=== PATIENT | female | born 1965 | race Caucasian/White ===

== ENCOUNTER 2016-08-20 08:30 | Emergency (ER) | payer OTHER ==
--- NOTE | 2016-08-20 09:33 | DIAGNOSTIC IMAGING REPORT ---
PROCEDURE: XR FOREARM - RIGHT INDICATION: TRAUMA/INJURY TECHNIQUE: Two views of the right forearm. COMPARISON: None. FINDINGS: Mild soft tissue swelling distal aspect of the forearm but no radiopaque foreign bodies. No fracture or dislocation. Normal joint spaces. IMPRESSION: 1. Soft tissue swelling neela
--- NOTE | 2016-08-20 09:35 | ED ORDER SUMMARY ---
..... Patient: GUANAKITO MARTINEZ OrderSheet [facility] VisitID: [id number] [address] [place] [address] 50y, F Registration Date/Time: 08/20/2016 ORDER SHEET Weight: 89.8 kg (stated) Allergies: Penicillins, Flonase GENERAL ORDERS: Forearm Right (dog bite to forearm (prox to mid)) Urgent (09:08/20/2016 [facility]) (Ack 9:13 LTapper) (9:33 Margaret R.N.) Dress Wounds (clean and dress with antibiotic oint after x-ray) (:08/20/2016 [facility]) (9:33 Margaret R.N.) MEDICATION ORDERS: Doxycycline Hyclate PO 200 mg (NOW) (09:08/20/2016 [facility]) (Ack 9:32 Vinh R.N.) (9:38 Margaret R.N.) Ibuprofen PO 400 mg (NOW) (09:08/20/2016 [facility]) (Ack 9:32 Vinh R.N.) (9:38 Margaret R.N.) IV FLUIDS: ORDER SHEET NOTES: [Electronically signed by Raf Rivers R.N. (10:08/20/2016)] [Electronically signed by Chung Dewitt DO (11:47 08/20/2016)] [Electronically locked/signed by Raf Rivers R.N. (10:08/20/2016)]
--- NOTE | 2016-08-20 09:35 | ED CLINICAL REPORT ---
Clinical Report - Physicians/Mid Levels [facility] [address] [place] [address] 08/20/2016 8:35 Patient: GUANAKITO MARTINEZ Time Seen: 09:01. Arrived- By private vehicle. Historian- patient. HISTORY OF PRESENT ILLNESS Location of injuries- right forearm. Chief Complaint: DOG BITE. The injury occurred just prior to arrival. The animal reportedly appeared well, is up to date on immunizations and can be observed for ten days. Occurred at home. This was a "provoked" attack. Animals were fighting. No itching, fainting episodes or difficulty breathing. She has not had swelling, drainage or trouble swallowing. REVIEW OF SYSTEMS No numbness, headache, difficulty breathing, weakness or tingling. No chest pain, nausea, fever, joint pain or abdominal pain. No vomiting or chills. PAST HISTORY See nurses notes. PROBLEMS: Anxiety Reaction. SURGERIES: Cyst from spine. Nasal surgery. Shoulder Surgery. Tetanus immunization status is up-to-date. SOCIAL HISTORY Smoker- current status unknown. No alcohol use or drug use. ADDITIONAL NOTES The nursing notes have been reviewed. PHYSICAL EXAM Vital Signs: 08/20/2016 08:44 BP: 137/70. HR: 64. RR: 18. O2 saturation: 95%. Temp: 98.1 F. Pain level now: 5/10. Appearance: Alert. Oriented X3. No acute distress. Head: Head normal on inspection and non-tender. Eyes: Eyes normal inspection. Neck: Normal inspection. Neck non-tender. CVS: Heart sounds normal. Pulses normal. Respiratory: Chest normal on inspection. Breath sounds normal. Chest nontender. Abdomen: Normal inspection. Skin: Skin warm and dry. (multiple abrasions and superficial punctures with one approx 0.5 cm laceration into the dermis on the dorsal aspect of the right forearm). Extremities: Right forearm: moderate tenderness, mild swelling, superficial 0.5 cm laceration and multiple puncture wounds located in the proximal and mid dorsal and volar aspect of forearm (multiple abrasions and superficial punctures with one approx 0.5 cm laceration into the dermis on the dorsal aspect of the right forearm). No deformity. Pelvis stable. Neuro: Waldorf Coma Scale: 15- eyes open spontaneously (4); best verbal response- oriented x 3 (5); best motor response- obeys commands (6). Oriented X 3. No motor deficit. LABS, X-RAYS, AND EKG Rt Forearm X-ray: No fracture. Normal alignment. No bony lesion or foreign body. Soft tissue swelling. Views: AP and lateral. Technique: good. The X-rays were interpreted contemporaneously by me. The X-rays were discussed with the radiologist (via PACS note). PROGRESS AND PROCEDURES PROCEDURES (Right forearm wounds cleaned and dressed with antibiotic ointment). Course of Care: Ibuprofen 400 mg PO given. Doxycycline 200 mg PO given. No primary closure of the one superficial right forearm laceration due to risk of infection. Patient/family counseled. Old ED records reviewed. Disposition: Discharged. Condition: stable and improved. CLINICAL IMPRESSION Superficial dog bite to the right forearm. INSTRUCTIONS Elevate affected areas above chest level. (You may consider closure of the small right forearm laceration per your primary care provider in 3 - 5 days if no signs of infection or other problems.). Warnings: INFECTION: Watch for signs of infection (increasing heat and redness, pus-like drainage, swelling, or increased pain). Return or see your doctor if these signs occur. GENERAL WARNINGS: Return or contact your physician immediately if your condition worsens or changes unexpectedly, if not improving as expected, or if other problems arise. Your Current Medications: CONTINUE TAKING THE FOLLOWING MEDICATIONS: Allergy Oral. DULoxetine HCl Oral. Prescription Medications: Doxycycline 100 mg: Take 1 capsule orally every 12 hours for 3 days. No refill. OTC Medications: Acetaminophen (available over the counter): take according to label instructions. Motrin (available over the counter): take according to label instructions. Follow-up: Follow up with your doctor in three days for wound check. (Electronically signed by Chung Dewitt DO 08/20/2016 11:47)
--- NOTE | 2016-08-20 09:35 | ED NURSING NOTES ---
Clinical Report - Nurses [facility] [address] [place] [address] 08/20/2016 8:35 Patient: GUANAKITO MARTINEZ TRIAGE Triage time 08:44. Acuity: LEVEL 4. Chief Complaint: DOG BITE. Alert. No acute distress. DAVID COMA SCORE: David Coma Scale: 15- eyes open spontaneously (4); best verbal response- oriented x 4 (5); best motor response- obeys commands (6). --08:51 Maria Isabel Antonio R.N. 08:44 08/20/16. BP: 137/70. HR: 64. RR: 18. O2 saturation: 95% on room air. Temp: 98.1 F (oral). Pain level now: 5/10. --08:51 Maria Isabel Antonio R.N. Weight: 89.8 kg stated. Height/Length: 63 inches Per Patient. BMI: 35.1. --08:48 Maria Isabel Antonio R.N. Medications DULoxetine HCl Oral. --08:45 Maria Isabel Antonio R.N. Allergy Oral. --08:46 Maria Isabel Antonio R.N. Medication/allergy information source: the patient. --08:51 Maria Isabel Antonio R.N. Allergies Penicillins. --08:46 Maria Isabel Antonio R.N. Flonase. --08:46 Maria Isabel Antonio R.N. History Arrived by private vehicle. Historian: patient. Unaccompanied. Primary physician (Emily). Location of injuries: right forearm and right wrist. This occurred just prior to arrival. Circumstances: This was an "unprovoked" attack. (her dogs were fighting over a treat). The animal reportedly appeared well and is up to date on immunizations. PAST MEDICAL HX: Last tetanus: (about 4 years ago). The patient is post-menopausal. SOCIAL HX: Smoker- current status unknown (no). No alcohol use or drug use. FALL RISK ASSESSMENT: Fall risk assessment completed. No fall risk identified. FUNCTIONAL ASSESSMENT: Functional assessment: no impairments noted. LEARNING NEEDS ASSESSMENT: The learning needs assessment revealed no barriers. --08:51 Maria Isabel Antonio R.N. PROBLEMS: Anxiety Reaction. --08:47 Maria Isabel Antonio R.N. ADDITIONAL SURGERIES: Cyst from spine. Nasal surgery. Shoulder Surgery. --08:47 Maria Isabel Antonio R.N. Assessment GENERAL / NEURO / PSYCH: Alert. Oriented X 4. Appears in no acute distress. Patient appears calm and cooperative. RESPIRATORY: Respirations not labored. SKIN: Skin is warm and dry. --08:51 Maria Isabel Antonio R.N. Interventions ID and allergy band on patient. To treatment room. --08:51 Maria Isabel Antonio R.N. PHYSICAL ASSESSMENT 08:57 08/20/16. Ambulatory to room. GENERAL / NEURO / PSYCH: Alert. Oriented X 4. Appears in no acute distress. RESPIRATORY: Respirations not labored. EXTREMITIES: ( multiple punctures on right forearm/wrist). SKIN: Skin is warm and dry. --08:57 Maria Isabel Antonio R.N. NURSING PROGRESS NOTES 08:57 08/20/16. Call light placed in reach. Side rails up x 1. Bed placed in lowest position. Brakes of bed on. --08:57 Maria Isabel Antonio R.N. <<STRICKEN ENTRY-- 09:25 08/20/16. ( Pt given a Chlorhexadine sponge an a basin of warm water to gently cleanse her puncture wounds on her (R) Forearm.). --09:39 Raf Rivers R.N. --END STRIKE>> Correction --10:18 Raf Rivers R.N. 09:33 08/20/2016 DOXYCYCLINE HYCLATE PO Tablets 200 mg given. Allergies verified and confirmed 5 rights. --09:38 Raf Rivers R.N. 09:38 08/20/2016 Ibuprofen PO Tablets 400 mg given. Allergies verified and confirmed 5 rights. --09:38 Raf Rivers R.N. <<STRICKEN ENTRY-- 09:10 late entry -. Patient transported to MD by stretcher with tech. --10:19 Raf Rivers R.N. --END STRIKE>> Correction --10:21 Raf Rivers R.N. 0910 late entry -. Patient transported to radiology by stretcher with tech. --10:22 Raf Rivers R.N. 09:30. Patient returned from CT by stretcher with tech. --10:19 Raf Rivers R.N. 09:30 late entry -. Patient returned from radiology by stretcher with tech. --10:24 Raf Rivers R.N. 09:30. ( Pt given a Chlorhexadine sponge and a basin of warm water to gently cleanse her puncture wounds on the (R) Forearm.). --10:26 Raf Rivers R.N. 09:35. ( Her puncture wounds were covered with Bacitracin ointment and vaseline impregnated gauze, and sterile 4 x [address] by a Kerlix wrap.). --09:51 Raf Rivers R.N. DISPOSITION / DISCHARGE 09:35 08/20/16. BP: 124/64. HR: 60. RR: 16. O2 saturation: 99% on room air. Temp: 98.2 F (oral). Pain level now: 08/28. --09:55 Raf Rivers R.N. Departure time: 939. --09:56 Raf Rivers R.N. 09:40. Condition at departure: improved. No learning barriers present. Discharge instructions provided and reviewed with the patient. Reviewed medication(s) (prescription given to pt). Reviewed wound care instructions. Reviewed referral to family practice for followup. Patient verbalized understanding. Written instructions provided in Vincentian. The patient was discharged by the physician. She was discharged home and unaccompanied at time of discharge. She left the Emergency Department ambulatory and via private vehicle. Patient driving. --09:59 Raf Rivers R.N. Locked/Released at 08/20/2016 10:28 by Raf Rivers R.N.
--- NOTE | 2016-08-20 09:35 | ED ORDER SUMMARY ---
..... Patient: GUANAKITO MARTINEZ OrderSheet [facility] VisitID: [id number] [address] [place] [address] 50y, F Registration Date/Time: 08/20/2016 ORDER SHEET Weight: 89.8 kg (stated) Allergies: Penicillins, Flonase GENERAL ORDERS: Forearm Right (dog bite to forearm (prox to mid)) Urgent (09:08/20/2016 [facility]) (Ack 9:13 LTapper) (9:33 Margaret R.N.) Dress Wounds (clean and dress with antibiotic oint after x-ray) (:08/20/2016 [facility]) (9:33 Margaret R.N.) MEDICATION ORDERS: Doxycycline Hyclate PO 200 mg (NOW) (09:08/20/2016 [facility]) (Ack 9:32 Vinh R.N.) (9:38 Margaret R.N.) Ibuprofen PO 400 mg (NOW) (09:08/20/2016 [facility]) (Ack 9:32 Vinh R.N.) (9:38 Margaret R.N.) IV FLUIDS: ORDER SHEET NOTES: [Electronically signed by Raf Rivers R.N. (10:08/20/2016)] [Electronically signed by Chung Dewitt DO (11:47 08/20/2016)] [Electronically locked/signed by Raf Rivers R.N. (10:08/20/2016)]
--- NOTE | 2016-08-20 11:48 | ED MAR SUMMARY ---
..... Medication Administration Record [facility] [address] [place] [address] Patient: GUANAKITO MARTINEZ Visit ID: [id number] 50y, F Weight: 89.8 kg Height/Length: 63 in BMI: 35.1 ALLERGIES: Flonase, Penicillins Given 09:33 08/20/2016 Raf Rivers, R.N. Medication Administered: DOXYCYCLINE HYCLATE [PO], Dose: 200 mg Tablets PO. Medication Ordered: Doxycycline Hyclate PO 200 mg (NOW). Given 09:38 08/20/2016 Raf Rivers, R.N. Medication Administered: IBUPROFEN [PO], Dose: 400 mg Tablets PO. Medication Ordered: Ibuprofen PO 400 mg (NOW).
--- NOTE | 2016-08-20 11:48 | ED MED RECONCILIATION SUMMARY ---
Patient: GUANAKITO MARTINEZ Medication Reconciliation Report [facility] VisitID: [id number] [address] [place] [address] 50y, F Registration Date/Time: 08/20/2016 Weight: 89.8 kg Height/Length: 63 in. BMI: 35.1 ALLERGIES: Flonase, Penicillins The patient's Home Medications are listed below: CONTINUE TAKING THE FOLLOWING MEDICATIONS: Allergy Oral DULoxetine HCl Oral The source(s) of the original Home Medication information: patient The following Medications were given to the patient in the Emergency Department: DOXYCYCLINE HYCLATE [PO] PO 200 mg, administered: 08/20/2016 9:33:00 AM Ibuprofen [PO] PO 400 mg, administered: 08/20/2016 9:38:00 AM The following Medications were prescribed to the patient: Acetaminophen (available over the counter): take according to label instructions. -- Chung Dewitt DO Motrin (available over the counter): take according to label instructions. -- Chung Dewitt DO Doxycycline 100 mg: Take 1 capsule orally every 12 hours for 3 days. No refill. -- Chung Dewitt DO
--- NOTE | 2016-08-20 11:48 | ED MED RECONCILIATION SUMMARY ---
Patient: GUANAKITO MARTINEZ Medication Reconciliation Report [facility] VisitID: [id number] [address] [place] [address] 50y, F Registration Date/Time: 08/20/2016 Weight: 89.8 kg Height/Length: 63 in. BMI: 35.1 ALLERGIES: Flonase, Penicillins The patient's Home Medications are listed below: CONTINUE TAKING THE FOLLOWING MEDICATIONS: Allergy Oral DULoxetine HCl Oral The source(s) of the original Home Medication information: patient The following Medications were given to the patient in the Emergency Department: DOXYCYCLINE HYCLATE [PO] PO 200 mg, administered: 08/20/2016 9:33:00 AM Ibuprofen [PO] PO 400 mg, administered: 08/20/2016 9:38:00 AM The following Medications were prescribed to the patient: Acetaminophen (available over the counter): take according to label instructions. -- Chung Dewitt DO Motrin (available over the counter): take according to label instructions. -- Chung Dewitt DO Doxycycline 100 mg: Take 1 capsule orally every 12 hours for 3 days. No refill. -- Chung Dewitt DO
--- NOTE | 2016-08-20 11:48 | ED DISCHARGE INSTRUCTIONS ---
Patient: GUANAKITO MARTINEZ General Instructions [facility] VisitID: [id number] [place] [address] 50y, F Registration Date/Time: 08/20/2016 Superficial dog bite to the right forearm. INSTRUCTIONS Elevate affected areas above chest level. (You may consider closure of the small right forearm laceration per your primary care provider in 3 - 5 days if no signs of infection or other problems.). Warnings: INFECTION: Watch for signs of infection (increasing heat and redness, pus-like drainage, swelling, or increased pain). Return or see your doctor if these signs occur. GENERAL WARNINGS: Return or contact your physician immediately if your condition worsens or changes unexpectedly, if not improving as expected, or if other problems arise. Your Current Medications: CONTINUE TAKING THE FOLLOWING MEDICATIONS: Allergy Oral. DULoxetine HCl Oral. Prescription Medications: Doxycycline 100 mg: Take 1 capsule orally every 12 hours for 3 days. No refill. OTC Medications: Acetaminophen (available over the counter): take according to label instructions. Motrin (available over the counter): take according to label instructions. Follow-up: Follow up with your doctor in three days for wound check. ADDITIONAL INFORMATION Dog Bite If a dog has bitten you and the wound is deep enough to break the skin, an infection may occur. Therefore, you should watch for the warning signs listed below. The doctor may not close the wound completely. This is to allow fluid to drain in the event of an infection. Home Care Watch the wound for signs of infection listed below. In certain types of bites, antibiotics may be prescribed. Begin taking these as soon as possible, as directed until they are all gone. Rabies Prevention If you live in an area where rabies occurs in wild animals, the rabies virus can be passed to cats and dogs. An infected animal can pass the rabies virus to you during a bite. If ahealthy-looking pet dog has bitten you, it should be kept in a secure area for the next 10 days to watch for signs of illness. If the pet national van owner operator wont cooperate with you, contact the [facility] animal control department (or local law enforcement). If the animal becomes ill or dies days, contact your animal control department at once. The animal must be tested for rabies. If the animal stays healthy for the next 10 days, then there is no danger of rabies in the dog or you. Pets fully vaccinated against rabies (2 shots) are at very low risk for the infection. However, because human rabies is almost always fatal, any biting dog should be kept in confinement for 10 days as an extra precaution. If a stray dog bit you, contact the animal control department. They can provide information on capture, quarantine, and animal rabies testing. If you are unable to locate the animal that bit you in the next 2days, and if rabies exists in your region, you must be evaluated for the rabies vaccine series. Contact your doctor or return here promptly. All animal bites should be reported to the [facility] animal control department. If you were not given a form to fill out, you can report it yourself by calling. Follow Up with your doctor as advised. Most skin wounds heal within 10 days. However, an infection may occur even with proper treatment. Check your woundevery 6 hoursfor 2 days, then at least once a day for the next two days for the signs of infection listed below. Get Prompt Medical Attention if any of the following occur: Signs of infection: Spreading redness Increased pain or swelling Fever of 100.4F (38C) or higher, or as directed by your healthcare provider Colored fluid or pus draining from the wound Headache, confusion, strange behavior, or a seizure (signs of a rabies infection) Doxycycline Monohydrate Oral tablet What is this medicine? DOXYCYCLINE (dox marilyn carrillo) is a tetracycline antibiotic. It kills certain bacteria or stops their growth. It is used to treat many kinds of infections, like dental, skin, respiratory, and urinary tract infections. It also treats acne, Lyme disease, malaria, and certain sexually transmitted infections. How should I use this medicine? Take this medicine by mouth with a full glass of water. Follow the directions on the prescription label. It is best to take this medicine without food, but if it upsets your stomach take it with food. Take your medicine at regular intervals. Do not take your medicine more often than directed. Take all of your medicine as directed even if you think you are better. Do not skip doses or stop your medicine early. Talk to your aircraft power plant assembler regarding the use of this medicine in children. Special care may be needed. While this drug may be prescribed for children as young as 8 years old for selected conditions, precautions do apply. What side effects may I notice from receiving this medicine? Side effects that you should report to your doctor or health plant health care technician as soon as possible: allergic reactions like skin rash, itching or hives, swelling of the face, lips, or tongue difficulty breathing fever itching in the rectal or genital area pain on swallowing redness, blistering, peeling or loosening of the skin, including inside the mouth severe stomach pain or cramps unusual bleeding or bruising unusually weak or tired yellowing of the eyes or skin Side effects that usually do not require medical attention (report to your doctor or health plant health care technician if they continue or are bothersome): diarrhea loss of appetite nausea, vomiting What may interact with this medicine? antacids barbiturates control pills bismuth subsalicylate carbamazepine methoxyflurane other antibiotics phenytoin vitamins that contain iron warfarin What if I miss a dose? If you miss a dose, take it as soon as you can. If it is almost time for your next dose, take only that dose. Do not take double or extra doses. Where should I keep my medicine? Keep out of the reach of children. Store at room temperature, below 30 degrees C (86 degrees F). Protect from light. Keep container tightly closed. Throw away any unused medicine after the expiration date. Taking this medicine after the expiration date can make you seriously ill. What should I tell my health care provider before I take this medicine? They need to know if you have any of these conditions: liver disease long exposure to sunlight like working outdoors stomach problems like colitis an unusual or allergic reaction to doxycycline, tetracycline antibiotics, other medicines, foods, dyes, or preservatives or trying to get breast-feeding What should I watch for while using this medicine? Tell your doctor or health plant health care technician if your symptoms do not improve. Do not treat diarrhea with over the counter products. Contact your doctor if you have diarrhea that lasts more than 2 days or if it is severe and watery. Do not take this medicine just before going to bed. It may not dissolve properly when you lay down and can cause pain in your throat. Drink plenty of fluids while taking this medicine to also help reduce irritation in your throat. This medicine can make you more sensitive to the sun. Keep out of the sun. If you cannot avoid being in the sun, wear protective clothing and use sunscreen. Do not use sun lamps or tanning beds/booths. control pills may not work properly while you are taking this medicine. Talk to your doctor about using an extra method of control. If you are being treated for a sexually transmitted infection, avoid sexual contact until you have finished your treatment. Your sexual partner may also need treatment. Avoid antacids, aluminum, calcium, magnesium, and iron products for 4 hours before and 2 hours after taking a dose of this medicine. If you are using this medicine to prevent malaria, you should still protect yourself from contact with mosquitos. Stay in screened-in areas, use mosquito nets, keep your body covered, and use an insect repellent. Acetaminophen Oral tablet What is this medicine? ACETAMINOPHEN (a set a MELANIE alexandra fen) is a pain reliever. It is used to treat mild pain and fever. How should I use this medicine? Take this medicine by mouth with a glass of water. Follow the directions on the package or prescription label. Take your medicine at regular intervals. Do not take your medicine more often than directed. Talk to your aircraft power plant assembler regarding the use of this medicine in children. While this drug may be prescribed for children as young as 6 years of age for selected conditions, precautions do apply. What side effects may I notice from receiving this medicine? Side effects that you should report to your doctor or health plant health care technician as soon as possible: allergic reactions like skin rash, itching or hives, swelling of the face, lips, or tongue breathing problems fever or sore throat redness, blistering, peeling or loosening of the skin, including inside the mouth trouble passing urine or change in the amount of urine unusual bleeding or bruising unusually weak or tired yellowing of the eyes or skin Side effects that usually do not require medical attention (report to your doctor or health plant health care technician if they continue or are bothersome): headache nausea, stomach upset What may interact with this medicine? alcohol imatinib isoniazid other medicines with acetaminophen What if I miss a dose? If you miss a dose, take it as soon as you can. If it is almost time for your next dose, take only that dose. Do not take double or extra doses. Where should I keep my medicine? Keep out of reach of children. Store at room temperature between 20 and 25 degrees C (68 and 77 degrees F). Protect from moisture and heat. Throw away any unused medicine after the expiration date. What should I tell my health care provider before I take this medicine? They need to know if you have any of these conditions: if you frequently drink alcohol containing drinks liver disease an unusual or allergic reaction to acetaminophen, other medicines, foods, dyes or preservatives or trying to get breast-feeding What should I watch for while using this medicine? Tell your doctor or health plant health care technician if the pain lasts more than 10 days (5 days for children), if it gets worse, or if there is a new or different kind of pain. Also, check with your doctor if a fever lasts for more than 3 days. Do not take other medicines that contain acetaminophen with this medicine. Always read labels carefully. If you have questions, ask your doctor or pharmacist. If you take too much acetaminophen get medical help right away. Too much acetaminophen can be very dangerous and cause liver damage. Even if you do not have symptoms, it is important to get help right away. Ibuprofen Oral tablet What is this medicine? IBUPROFEN (eye BYOO proe fen) is a non-steroidal anti-inflammatory drug (NSAID). It is used for dental pain, fever, headaches or migraines, osteoarthritis, rheumatoid arthritis, or painful monthly periods. It can also relieve minor aches and pains caused by a cold, flu, or sore throat. How should I use this medicine? Take this medicine by mouth with a glass of water. Follow the directions on the prescription label. Take this medicine with food if your stomach gets upset. Try to not lie down for at least 10 minutes after you take the medicine. Take your medicine at regular intervals. Do not take your medicine more often than directed. A special MedGuide will be given to you by the pharmacist with each prescription and refill. Be sure to read this information carefully each time. Talk to your aircraft power plant assembler regarding the use of this medicine in children. Special care may be needed. What side effects may I notice from receiving this medicine? Side effects that you should report to your doctor or health plant health care technician as soon as possible: allergic reactions like skin rash, itching or hives, swelling of the face, lips, or tongue black or bloody stools, blood in the urine or in vomit breathing problems changes in vision chest pain general ill feeling or flu-like symptoms nausea or vomiting redness, blistering, peeling or loosening of the skin, including inside the mouth slurred speech or weakness on one side of the body stomach pain unexplained weight gain or swelling unusually weak or tired yellowing of eyes or skin Side effects that usually do not require medical attention (report to your doctor or health plant health care technician if they continue or are bothersome): constipation or diarrhea dizziness gas or heartburn stomach upset What may interact with this medicine? Do not take this medicine with any of the following medications: cidofovir ketorolac methotrexate pemetrexed This medicine may also interact with the following medications: alcohol aspirin diuretics lithium other drugs for inflammation like prednisone warfarin What if I miss a dose? If you miss a dose, take it as soon as you can. If it is almost time for your next dose, take only that dose. Do not take double or extra doses. Where should I keep my medicine? Keep out of the reach of children. Store at room temperature between 15 and 30 degrees C (59 and 86 degrees F). Keep container tightly closed. Throw away any unused medicine after the expiration date. What should I tell my health care provider before I take this medicine? They need to know if you have any of these conditions: asthma cigarette smoker drink more than 3 alcohol containing drinks a day heart disease or circulation problems such as heart failure or leg edema (fluid retention) high blood pressure kidney disease liver disease stomach bleeding or ulcers an unusual or allergic reaction to ibuprofen, aspirin, other NSAIDS, other medicines, foods, dyes, or preservatives or trying to get breast-feeding What should I watch for while using this medicine? Tell your doctor or healthcare professional if your symptoms do not start to get better or if they get worse. This medicine does not prevent heart attack or stroke. In fact, this medicine may increase the chance of a heart attack or stroke. The chance may increase with longer use of this medicine and in people who have heart disease. If you take aspirin to prevent heart attack or stroke, talk with your doctor or health plant health care technician. Do not take other medicines that contain aspirin, ibuprofen, or naproxen with this medicine. Side effects such as stomach upset, nausea, or ulcers may be more likely to occur. Many medicines available without a prescription should not be taken with this medicine. This medicine can cause ulcers and bleeding in the stomach and intestines at any time during treatment. Ulcers and bleeding can happen without warning symptoms and can cause . To reduce your risk, do not smoke cigarettes or drink alcohol while you are taking this medicine. You may get drowsy or dizzy. Do not drive, use machinery, or do anything that needs mental alertness until you know how this medicine affects you. Do not stand or sit up quickly, especially if you are an older patient. This reduces the risk of dizzy or fainting spells. This medicine can cause you to bleed more easily. Try to avoid damage to your teeth and gums when you brush or floss your teeth. You have been given the following additional information: Dog Bite Doxycycline Monohydrate Oral tablet Acetaminophen Oral tablet Ibuprofen Oral tablet (Electronically signed by Chung Dewitt DO 08/20/2016 11:47)
--- NOTE | 2016-08-20 11:48 | ED DISCHARGE INSTRUCTIONS ---
Patient: GUANAKITO MARTINEZ General Instructions [facility] VisitID: [id number] [place] [address] 50y, F Registration Date/Time: 08/20/2016 Superficial dog bite to the right forearm. INSTRUCTIONS Elevate affected areas above chest level. (You may consider closure of the small right forearm laceration per your primary care provider in 3 - 5 days if no signs of infection or other problems.). Warnings: INFECTION: Watch for signs of infection (increasing heat and redness, pus-like drainage, swelling, or increased pain). Return or see your doctor if these signs occur. GENERAL WARNINGS: Return or contact your physician immediately if your condition worsens or changes unexpectedly, if not improving as expected, or if other problems arise. Your Current Medications: CONTINUE TAKING THE FOLLOWING MEDICATIONS: Allergy Oral. DULoxetine HCl Oral. Prescription Medications: Doxycycline 100 mg: Take 1 capsule orally every 12 hours for 3 days. No refill. OTC Medications: Acetaminophen (available over the counter): take according to label instructions. Motrin (available over the counter): take according to label instructions. Follow-up: Follow up with your doctor in three days for wound check. ADDITIONAL INFORMATION Dog Bite If a dog has bitten you and the wound is deep enough to break the skin, an infection may occur. Therefore, you should watch for the warning signs listed below. The doctor may not close the wound completely. This is to allow fluid to drain in the event of an infection. Home Care Watch the wound for signs of infection listed below. In certain types of bites, antibiotics may be prescribed. Begin taking these as soon as possible, as directed until they are all gone. Rabies Prevention If you live in an area where rabies occurs in wild animals, the rabies virus can be passed to cats and dogs. An infected animal can pass the rabies virus to you during a bite. If ahealthy-looking pet dog has bitten you, it should be kept in a secure area for the next 10 days to watch for signs of illness. If the pet school age teacher wont cooperate with you, contact the [facility] hospital animal control department (or local law enforcement). If the animal becomes ill or dies [id number] days, contact your animal control department at once. The animal must be tested for rabies. If the animal stays healthy for the next 10 days, then there is no danger of rabies in the dog or you. Pets fully vaccinated against rabies (2 shots) are at very low risk for the infection. However, because human rabies is almost always fatal, any biting dog should be kept in confinement for 10 days as an extra precaution. If a stray dog bit you, contact the animal control department. They can provide information on capture, quarantine, and animal rabies testing. If you are unable to locate the animal that bit you in the next 2days, and if rabies exists in your region, you must be evaluated for the rabies vaccine series. Contact your doctor or return here promptly. All animal bites should be reported to the psychiatric hospital animal control department. If you were not given a form to fill out, you can report it yourself by calling. Follow Up with your doctor as advised. Most skin wounds heal within 10 days. However, an infection may occur even with proper treatment. Check your woundevery 6 hoursfor 2 days, then at least once a day for the next two days for the signs of infection listed below. Get Prompt Medical Attention if any of the following occur: Signs of infection: Spreading redness Increased pain or swelling Fever of 100.4F (38C) or higher, or as directed by your healthcare provider Colored fluid or pus draining from the wound Headache, confusion, strange behavior, or a seizure (signs of a rabies infection) Doxycycline Monohydrate Oral tablet What is this medicine? DOXYCYCLINE (dox marilyn carrillo) is a tetracycline antibiotic. It kills certain bacteria or stops their growth. It is used to treat many kinds of infections, like dental, skin, respiratory, and urinary tract infections. It also treats acne, Lyme disease, malaria, and certain sexually transmitted infections. How should I use this medicine? Take this medicine by mouth with a full glass of water. Follow the directions on the prescription label. It is best to take this medicine without food, but if it upsets your stomach take it with food. Take your medicine at regular intervals. Do not take your medicine more often than directed. Take all of your medicine as directed even if you think you are better. Do not skip doses or stop your medicine early. Talk to your pt skilled regarding the use of this medicine in children. Special care may be needed. While this drug may be prescribed for children as young as 8 years old for selected conditions, precautions do apply. What side effects may I notice from receiving this medicine? Side effects that you should report to your doctor or health director of career services as soon as possible: allergic reactions like skin rash, itching or hives, swelling of the face, lips, or tongue difficulty breathing fever itching in the rectal or genital area pain on swallowing redness, blistering, peeling or loosening of the skin, including inside the mouth severe stomach pain or cramps unusual bleeding or bruising unusually weak or tired yellowing of the eyes or skin Side effects that usually do not require medical attention (report to your doctor or health director of career services if they continue or are bothersome): diarrhea loss of appetite nausea, vomiting What may interact with this medicine? antacids barbiturates control pills bismuth subsalicylate carbamazepine methoxyflurane other antibiotics phenytoin vitamins that contain iron warfarin What if I miss a dose? If you miss a dose, take it as soon as you can. If it is almost time for your next dose, take only that dose. Do not take double or extra doses. Where should I keep my medicine? Keep out of the reach of children. Store at room temperature, below 30 degrees C (86 degrees F). Protect from light. Keep container tightly closed. Throw away any unused medicine after the expiration date. Taking this medicine after the expiration date can make you seriously ill. What should I tell my health care provider before I take this medicine? They need to know if you have any of these conditions: liver disease long exposure to sunlight like working outdoors stomach problems like colitis an unusual or allergic reaction to doxycycline, tetracycline antibiotics, other medicines, foods, dyes, or preservatives or trying to get breast-feeding What should I watch for while using this medicine? Tell your doctor or health director of career services if your symptoms do not improve. Do not treat diarrhea with over the counter products. Contact your doctor if you have diarrhea that lasts more than 2 days or if it is severe and watery. Do not take this medicine just before going to bed. It may not dissolve properly when you lay down and can cause pain in your throat. Drink plenty of fluids while taking this medicine to also help reduce irritation in your throat. This medicine can make you more sensitive to the sun. Keep out of the sun. If you cannot avoid being in the sun, wear protective clothing and use sunscreen. Do not use sun lamps or tanning beds/booths. control pills may not work properly while you are taking this medicine. Talk to your doctor about using an extra method of control. If you are being treated for a sexually transmitted infection, avoid sexual contact until you have finished your treatment. Your sexual partner may also need treatment. Avoid antacids, aluminum, calcium, magnesium, and iron products for 4 hours before and 2 hours after taking a dose of this medicine. If you are using this medicine to prevent malaria, you should still protect yourself from contact with mosquitos. Stay in screened-in areas, use mosquito nets, keep your body covered, and use an insect repellent. Acetaminophen Oral tablet What is this medicine? ACETAMINOPHEN (a set a MELANIE alexandra fen) is a pain reliever. It is used to treat mild pain and fever. How should I use this medicine? Take this medicine by mouth with a glass of water. Follow the directions on the package or prescription label. Take your medicine at regular intervals. Do not take your medicine more often than directed. Talk to your pt skilled regarding the use of this medicine in children. While this drug may be prescribed for children as young as 6 years of age for selected conditions, precautions do apply. What side effects may I notice from receiving this medicine? Side effects that you should report to your doctor or health director of career services as soon as possible: allergic reactions like skin rash, itching or hives, swelling of the face, lips, or tongue breathing problems fever or sore throat redness, blistering, peeling or loosening of the skin, including inside the mouth trouble passing urine or change in the amount of urine unusual bleeding or bruising unusually weak or tired yellowing of the eyes or skin Side effects that usually do not require medical attention (report to your doctor or health director of career services if they continue or are bothersome): headache nausea, stomach upset What may interact with this medicine? alcohol imatinib isoniazid other medicines with acetaminophen What if I miss a dose? If you miss a dose, take it as soon as you can. If it is almost time for your next dose, take only that dose. Do not take double or extra doses. Where should I keep my medicine? Keep out of reach of children. Store at room temperature between 20 and 25 degrees C (68 and 77 degrees F). Protect from moisture and heat. Throw away any unused medicine after the expiration date. What should I tell my health care provider before I take this medicine? They need to know if you have any of these conditions: if you frequently drink alcohol containing drinks liver disease an unusual or allergic reaction to acetaminophen, other medicines, foods, dyes or preservatives or trying to get breast-feeding What should I watch for while using this medicine? Tell your doctor or health director of career services if the pain lasts more than 10 days (5 days for children), if it gets worse, or if there is a new or different kind of pain. Also, check with your doctor if a fever lasts for more than 3 days. Do not take other medicines that contain acetaminophen with this medicine. Always read labels carefully. If you have questions, ask your doctor or pharmacist. If you take too much acetaminophen get medical help right away. Too much acetaminophen can be very dangerous and cause liver damage. Even if you do not have symptoms, it is important to get help right away. Ibuprofen Oral tablet What is this medicine? IBUPROFEN (eye BYOO proe fen) is a non-steroidal anti-inflammatory drug (NSAID). It is used for dental pain, fever, headaches or migraines, osteoarthritis, rheumatoid arthritis, or painful monthly periods. It can also relieve minor aches and pains caused by a cold, flu, or sore throat. How should I use this medicine? Take this medicine by mouth with a glass of water. Follow the directions on the prescription label. Take this medicine with food if your stomach gets upset. Try to not lie down for at least 10 minutes after you take the medicine. Take your medicine at regular intervals. Do not take your medicine more often than directed. A special MedGuide will be given to you by the pharmacist with each prescription and refill. Be sure to read this information carefully each time. Talk to your pt skilled regarding the use of this medicine in children. Special care may be needed. What side effects may I notice from receiving this medicine? Side effects that you should report to your doctor or health director of career services as soon as possible: allergic reactions like skin rash, itching or hives, swelling of the face, lips, or tongue black or bloody stools, blood in the urine or in vomit breathing problems changes in vision chest pain general ill feeling or flu-like symptoms nausea or vomiting redness, blistering, peeling or loosening of the skin, including inside the mouth slurred speech or weakness on one side of the body stomach pain unexplained weight gain or swelling unusually weak or tired yellowing of eyes or skin Side effects that usually do not require medical attention (report to your doctor or health director of career services if they continue or are bothersome): constipation or diarrhea dizziness gas or heartburn stomach upset What may interact with this medicine? Do not take this medicine with any of the following medications: cidofovir ketorolac methotrexate pemetrexed This medicine may also interact with the following medications: alcohol aspirin diuretics lithium other drugs for inflammation like prednisone warfarin What if I miss a dose? If you miss a dose, take it as soon as you can. If it is almost time for your next dose, take only that dose. Do not take double or extra doses. Where should I keep my medicine? Keep out of the reach of children. Store at room temperature between 15 and 30 degrees C (59 and 86 degrees F). Keep container tightly closed. Throw away any unused medicine after the expiration date. What should I tell my health care provider before I take this medicine? They need to know if you have any of these conditions: asthma cigarette smoker drink more than 3 alcohol containing drinks a day heart disease or circulation problems such as heart failure or leg edema (fluid retention) high blood pressure kidney disease liver disease stomach bleeding or ulcers an unusual or allergic reaction to ibuprofen, aspirin, other NSAIDS, other medicines, foods, dyes, or preservatives or trying to get breast-feeding What should I watch for while using this medicine? Tell your doctor or healthcare professional if your symptoms do not start to get better or if they get worse. This medicine does not prevent heart attack or stroke. In fact, this medicine may increase the chance of a heart attack or stroke. The chance may increase with longer use of this medicine and in people who have heart disease. If you take aspirin to prevent heart attack or stroke, talk with your doctor or health director of career services. Do not take other medicines that contain aspirin, ibuprofen, or naproxen with this medicine. Side effects such as stomach upset, nausea, or ulcers may be more likely to occur. Many medicines available without a prescription should not be taken with this medicine. This medicine can cause ulcers and bleeding in the stomach and intestines at any time during treatment. Ulcers and bleeding can happen without warning symptoms and can cause . To reduce your risk, do not smoke cigarettes or drink alcohol while you are taking this medicine. You may get drowsy or dizzy. Do not drive, use machinery, or do anything that needs mental alertness until you know how this medicine affects you. Do not stand or sit up quickly, especially if you are an older patient. This reduces the risk of dizzy or fainting spells. This medicine can cause you to bleed more easily. Try to avoid damage to your teeth and gums when you brush or floss your teeth. You have been given the following additional information: Dog Bite Doxycycline Monohydrate Oral tablet Acetaminophen Oral tablet Ibuprofen Oral tablet (Electronically signed by Chung Dewitt DO 08/20/2016 11:47)
--- NOTE | 2016-08-20 11:48 | ED MAR SUMMARY ---
..... Medication Administration Record [facility] [address] [place] [address] Patient: GUANAKITO MARTINEZ Visit ID: [id number] 50y, F Weight: 89.8 kg Height/Length: 63 in BMI: 35.1 ALLERGIES: Flonase, Penicillins Given 09:33 08/20/2016 Raf Rivers, R.N. Medication Administered: DOXYCYCLINE HYCLATE [PO], Dose: 200 mg Tablets PO. Medication Ordered: Doxycycline Hyclate PO 200 mg (NOW). Given 09:38 08/20/2016 Raf Rivers, R.N. Medication Administered: IBUPROFEN [PO], Dose: 400 mg Tablets PO. Medication Ordered: Ibuprofen PO 400 mg (NOW).
== END 2016-08-20 09:40 | disposition home or self-care (01) ==
LOC: ED SRH 08:30
DX: S50.871A Other superficial bite of right forearm, initial encounter (principal); W54.0XXA Bitten by dog, initial encounter; Y93.9 Activity, unspecified; Y92.009 Unspecified place in unspecified non-institutional (private) residence as the place of occurrence of the external cause; Y99.9 Unspecified external cause status; F17.200 Nicotine dependence, unspecified, uncomplicated; Z88.0 Allergy status to penicillin; Z88.8 Allergy status to other drugs, medicaments and biological substances

== ENCOUNTER 2016-08-31 09:03 | Outpatient (CLI) | payer OTHER ==
--- NOTE | 2016-08-31 10:15 | DIAGNOSTIC IMAGING REPORT ---
PROCEDURE: DEXA BONE DENSITY STUDY CLINICAL INDICATION: SCREENING COMPARISON: None. FINDINGS: LUMBAR SPINE: Bone mineral density all 1.063 g/cm2, T score 0.1 normal LEFT HIP: Bone mineral density 0.894 g/cm2, T score -0.4 normal LEFT FEMORAL NECK: Bone mineral density 0.754 g/cm2, T score -0.9 normal FRACTURE RISK CALCULATION ( when applicable): 10-year fracture risk of a major osteoporotic fracture and of a hip fracture not reported because all T-scores at or above -1.0 (T score greater or equal to -1.0 to: NORMAL) (T score from -1.1 to -2.4: OSTEOPENIA) (T score ess than or equal to -2.5: OSTEOPOROSIS) IMPRESSION: 1. Normal spine hip and femoral neck
--- NOTE | 2016-08-31 13:56 | DIAGNOSTIC IMAGING REPORT ---
PROCEDURE: MG BILATERAL SCREENING W/CAD INDICATION: Screening. History breast aspirations TECHNIQUE: Bilateral CC and MLO digital views. COMPARISON: None available. FINDINGS: Computer-aided detection applied. Moderately dense parenchymal pattern with multiple breast nodules (largest left 1.6 cm upper outer quadrant; largest right 1.5 cm upper outer quadrant). IMPRESSION: 1. Multiple bilateral breast nodules suggests multiple cysts. Comparison with prior outside studies is recommended, initially. These will be sent for. If and when these become available, an addendum can be issued this report. RESULT CODE: 0- Prior images needed. A. A negative report should not delay biopsy if a dominant or clinically suspicious mass is present. 10-15% of cancers are not identified by x-ray. B. A negative report may reinforce clinical impression. C. Adenosis and dense breasts may obscure an underlying neoplasm. D. False positive reports average 6-10%. E.. A yearly screening mammogram is recommended. A reminder letter will be scheduled.
== END 2016-08-31 23:00 ==
LOC: MAM SRH 09:03
DX: Z12.31 Encounter for screening mammogram for malignant neoplasm of breast (principal); Z13.820 Encounter for screening for osteoporosis